=== PATIENT | male | born 2000 | race African-American/Black ===

== ENCOUNTER 2023-01-18 12:16 | Outpatient (CLI) | payer OTHER ==
[~2023-01-18 12:16] MED LIST: GADOBUTROL 7.5 MMOL/7.5 ML VIAL ONE; LIDOCAINE-MPF 1% 5 ML VIAL ONE; iohexoL-240 10 ML VIAL IVP ONE
[2023-01-18] MEDS ORDERED: LIDOCAINE-MPF 1% 5 ML VIAL TD ONE (12:59)
[2023-01-18] MEDS ORDERED: iohexoL-240 10 ML VIAL IVP ONE (13:00)
[2023-01-18] MEDS ORDERED: GADOBUTROL 7.5 MMOL/7.5 ML VIAL IVP SCH (14:00)
--- NOTE | 2023-01-18 17:00 | MRI Report ---
PROCEDURE: ARTHROGRAM SHOULDER - RT INDICATIONS: PAIN IN SHOULDER CONTRAST: Dilute intra-articular gadolinium TECHNIQUE: After the administration of 12 mL of dilute intra-articular Gadolinium contrast, oblique coronal T1 a nd T2 spin echo with fat saturation, oblique sagittal T1 spin echo with and without fat saturation, o blique sagittal T2 fast spin echo with fat saturation, axial T1 spin echo with fat saturation through the shoulder. COMPARISON: None. FINDINGS: Image quality: Excellent. Rotator cuff: Mild T2 signal elevation within the supraspinatus and infraspinatus tendons at the hum eral insertion sites extending to the muscular tendinous junction, indicating tendinopathy. The supra spinatus, infraspinatus, and subscapularis tendons appear intact throughout. No rotator cuff muscle atrophy on sagittal images. Bones and bursae: No bone marrow contusions or fractures. Mild acromioclavicular joint degeneration. The acromion demonstrates conventional anatomy, without an os acromiale. Capsule and soft tissues: The labrum and glenohumeral ligaments appear intact. The long head of the biceps tendon demonstrates normal location and morphology. The rotator interval appears normal, wit hout fibrosis. The coracohumeral ligament is of normal thickness. No intra-articular bodies. IMPRESSION: 1. Supraspinatus and infraspinatus tendinopathy. No rotator cuff tear. 2. Mild acromioclavicular joint osteoarthritis. Reviewed by: Reinier Del Real MD on 01/18/2023 4:58 PM PDT Approved by: Reinier Del Real MD on 01/18/2023 4:58 PM PDT Station ID: [id number]
--- NOTE | 2023-01-18 17:06 | XRAY Report ---
PROCEDURE: Arthrogram Needle Placement INDICATIONS: PAIN IN SHOULDER TECHNIQUE: PROCEDURE: Arthrogram Needle Placement INDICATIONS: PAIN IN SHOULDER FLUOROSCOPY TIME: 0.5 min TECHNIQUE: The indications, alternatives, benefits, risks, and complications of the procedure were explained to the patient. Written informed consent was obtained and placed in the chart. The shoulder was examin ed fluoroscopically and a site for needle placement chosen for entry into the glenohumeral joint from an anterior approach. The skin was prepped and draped in the usual fashion, and 1% lidocaine infilt rated from skin down to joint capsule. A spinal needle was inserted into the glenohumeral joint, and a small amount of iodinated contrast media injected to confirm intra-articular placement of the need le tip. This was followed by approximately 12 mL dilute solution of a gadolinium containing MR contr ast agent. The needle was removed and a dressing was applied. The patient was given postprocedural instructions and sent to the MR suite for MR imaging. FINDINGS: A single fluoroscopic spot image demonstrates intra-articular location of injected iodinated contrast . IMPRESSION: Successful fluoroscopically guided administration of dilute Gadolinium solution into the shoulder [facility] for MR arthrogram. Reviewed by: Sun Zurita MD on 01/18/2023 5:05 PM PDT Approved by: Sun Zurita MD on 01/18/2023 5:05 PM PDT Station ID: [id number]
== END 2023-01-18 12:17 | disposition home or self-care (01) ==
LOC: DI 12:16
PROVIDERS: ATTEND Student in an Organized Health Care Education/Training Program
DX: M19.011 Primary osteoarthritis, right shoulder (principal); M75.81 Other shoulder lesions, right shoulder
CPT/HCPCS: 23350; 73222; 77002; A9585; Q9966